=== PATIENT | female | born 1970 | race American Indian/Alaskan Native ===

== ENCOUNTER 2019-01-24 18:06 | Emergency (ER) | payer OTHER ==
[2019-01-24 19:57] LABS: BASO # 0.1 K/uL (0.0-0.2); BASO % 1.1 % (0.0-2.0); EOS # 0.1 K/uL (0.0-0.7); EOS % 0.7 % (0.0-4.0); HEMOGLOBIN 13.3 g/dL (12.0-16.0); LYMPH # 3.7 K/uL (1.0-4.3); LYMPH % 42.7 % (20.0-40.0); MEAN CELL VOLUME 79.2 fl (81.0-99.0); MEAN CORPUSCULAR HEMOGLOBIN 24.7 pg (27.0-31.0); MEAN CORPUSCULAR HGB CONC 31.2 g/dL (33.0-37.0); MEAN PLATELET VOLUME 8.1 fl (7.2-11.7); MONO # 0.5 K/uL (0.0-0.8); MONO % 6.1 % (0.0-10.0); NEUT # 4.3 K/uL (1.8-7.0); NEUT % 49.4 % (50.0-75.0); NRBC % 0.1 % (0.0-0.0); RBC 5.37 Mil/uL (3.80-5.20); WHITE BLOOD COUNT 8.7 K/uL (4.8-10.8)
[2019-01-24 20:03] LABS: BLOOD UREA NITROGEN 21 mg/dl (7-17); GFR NON-AFRICAN AMERICAN > 60
[2019-01-24 20:12] LABS: SQUAMOUS EPITHIAL 3 /hpf (0-5); URINE BACTERIA RARE (<OCC); URINE BILIRUBIN NEGATIVE (NEGATIVE); URINE BLOOD NEGATIVE (NEGATIVE); URINE CLARITY SLIGHTY-CLOUDY (Clear); URINE COLOR YELLOW (YELLOW); URINE GLUCOSE (UA) NEG (NEGATIVE); URINE LEUKOCYTE ESTERASE MOD Leu/uL (Negative); URINE PROTEIN NEGATIVE (NEGATIVE); URINE UROBILINOGEN 0.2-1.0 mg/dL (0.2-1.0)
[2019-01-24 20:44] VITALS: RESP 17
[2019-01-24 20:56] LABS: B-TYPE NATRIURETIC PEPTIDE < 11.1 pg/ml (0-450); CK-MB < 0.22 ng/mL (0.0-3.38)
--- NOTE | 2019-01-24 20:57 | ED PDOC ---
HPI: Chest Pain Time Seen by Provider: 01/24/19 19:12 Chief Complaint (Nursing): Chest Pain Chief Complaint (Provider): Chest Pain History Per: Patient History/Exam Limitations: no limitations Additional Complaint(s): Patient is a 48 year old female with a past medical history of HTN, who presents to the emergency department complaining of left arm pain for the past x1 week. She states that pain starts on the right side of the neck and travels around the neck and down the left arm. She states her left upper arm seems more swollen compared to right. Patient states she has not done any heavy lifting or exacerbative activity. Patient was told to come to ED when she was complaining of chest pain at work. She denies any shortness of breath, sweating or exertional chest pain. Patient denies any family history that is significant for coronary artery disease. PMD: Summer Perez Past Medical History Reviewed: Historical Data, Nursing Documentation, Vital Signs Vital Signs: Last Vital Signs Temp 98.9 F 01/24/19 20:43 Pulse 83 01/24/19 20:43 Resp 17 01/24/19 20:43 BP 137/79 01/24/19 20:43 Pulse Ox 96 01/24/19 20:43 - Medical History PMH: HTN - Surgical History Surgical History: No Surg Hx - Family History Family History: States: No Known Family Hx - Allergies Allergies/Adverse Reactions: Allergies Allergy/AdvReac Type Severity Reaction Status Date / Time No Known Allergies Allergy Verified 01/24/19 18:21 Review of Systems ROS Statement: Except As Marked, All Systems Reviewed And Found Negative Musculoskeletal: Positive for: Neck Pain, Arm Pain Physical Exam - Reviewed Nursing Documentation Reviewed: Yes Vital Signs Reviewed: Yes - Physical Exam Appears: Positive for: Non-toxic, No Acute Distress Head Exam: Positive for: ATRAUMATIC, NORMOCEPHALIC Cardiovascular/Chest: Positive for: Regular Rate, Rhythm. Negative for: Murmur Respiratory: Positive for: Normal Breath Sounds. Negative for: Respiratory Distress Extremity: Positive for: Swelling (mild swelling on left upper extremity compared to right). Negative for: Pedal Edema, Deformity Neurological/Psych: Positive for: Alert, Oriented - Laboratory Results Result Diagrams: 01/24/19 19:47 01/24/19 19:47 Lab Results: Troponin I < 0.0120 ng/mL (0.00-0.120) 01/24/19 19:47 Urine Color Yellow (YELLOW) 01/24/19: Urine Clarity Slighty-cloudy (Clear) 01/24/19: Urine pH 5.0 (5.0-8.0) 01/24/19 19:35 Ur Specific [place] 1.025 (1.003-1.030) 01/24/19: Urine Protein Negative mg/dL (NEGATIVE) 01/24/19 Urine Glucose (UA) Neg mg/dL (NEGATIVE) 01/24/19: Urine Ketones Negative mg/dL (NEGATIVE) 01/24/19: Urine Blood Negative (NEGATIVE) 01/24/19: Urine Nitrate Negative (NEGATIVE) 01/24/19 Urine Bilirubin Negative (NEGATIVE) 01/24/19: Urine Urobilinogen 0.2-1.0 mg/dL (0.2-1.0) 01/24/19:35 Ur Leukocyte Esterase Mod [place]/uL (Negative) 01/24/19:35 Urine RBC (Auto) 3 /hpf (0-3) 01/24/19:35 Urine Microscopic WBC 12 /hpf (0-5) H 01/24/19:35 Ur Squamous Epith Cells 3 /hpf (0-5) 01/24/19:35 Urine Bacteria Rare (<OCC) 01/24/19 19:35 - ECG O2 Sat by Pulse Oximetry: 96 (RA) Pulse Ox Interpretation: Normal Medical Decision Making Medical Decision Making: Time: 1924 Impression: Atypical chest pain, does not seem cardiac at this time possible paresthesia, musculoskeletal related given swelling in arm. Plan: Will treat with toradol and check cardiac biomarkers. --EKG --BMP --CK-MB --B-type natriuretic peptide --CBC with differential --Urinalysis --Chest xray 2 views --Toradol 15 mg IVP --personnel monitor 2100 --Patient reports improvement, very well appearing, wants to go home --Results are all within normal limits --Advised NSAIDs and close followup with her PMD, Dr. Perez --Very well appearing upon discharge Scribe Attestation: Documented by Peter Lilly, acting as a scribe Ariadna Rollins MD. Provider Scribe Attestation: All medical record entries made by the Scribe were at my direction and personally dictated by me. I have reviewed the chart and agree that the record accurately reflects my personal performance of the history, physical exam, medical decision making, and the department course for this patient. I have also personally directed, reviewed, and agree with the discharge instructions and disposition. Disposition - Clinical Impression Clinical Impression: Atypical chest pain - Disposition Referrals: Summer Perez MD [Non-Staff] - Disposition: Routine/Home Disposition Time: 21:00 Condition: IMPROVED Instructions: Chest Pain That Is Not Caused by the Heart (DC), Paresthesias (DC) Forms: [employer] (Green[place]ic), [facility] ED School/Work Excuse
[2019-01-24 21:52] VITALS: BP 126/88; PULSE 81; TEMP 98.8; O2SAT 97
--- NOTE | 2019-01-25 08:57 | CARD ---
APPROVED REPORT Date of service: 01/24/2019 EKG Measurement Heart [id number] DC [id number] <Conclusion> Normal sinus rhythm Voltage criteria for left ventricular hypertrophy Nonspecific T wave abnormality Abnormal ECG
--- NOTE | 2019-01-25 09:12 | RAD ---
Date of service: 01/24/2019 HISTORY: CP COMPARISON: No prior. TECHNIQUE: Chest PA and lateral views FINDINGS: LUNGS: No active pulmonary disease. PLEURA: No significant pleural effusion identified. No pneumothorax apparent. CARDIOVASCULAR: No aortic atherosclerotic calcification present. Thoracic aorta mildly ectatic and tortuous. Normal cardiac size. No pulmonary vascular congestion. OSSEOUS STRUCTURES: Thoracic spondylosis. VISUALIZED UPPER ABDOMEN: Normal. OTHER FINDINGS: None. IMPRESSION: No acute pulmonary pathology. Tortuous thoracic aorta without comparison exams.. Correlate clinically.
== END 2019-01-24 21:52 | disposition home or self-care (01) ==
LOC: H.ER 18:06
DX: R07.9 Chest pain, unspecified (principal); I10 Essential (primary) hypertension; R07.89 Other chest pain
CPT/HCPCS: 71046; 80048; 81003; 81025; 82553; 83880; 84484; 85025; 93005; 96374; 99283; J1885